=== PATIENT | male | born 1970 | race Caucasian/White ===

== ENCOUNTER 2017-01-04 07:39 | Emergency (ER) | payer OTHER ==
[~2017-01-04] VITALS: Ht 182.9 cm; Wt 83.9 kg
--- NOTE | 2017-01-04 08:00 | PHYS DOC ---
General Chief Complaint: FATIGUE Time Seen by MD: 07:43 Source: patient Exam Limitations: no limitations Problems: History of Present Illness Initial Comments Patient is 46-year-old male who comes to the ED complaining of fatigue. 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 States he had a negative heart catheterization within the past year he takes xarelto carvedilol lisinopril and Protonix regularly. Symptoms have been consistent the past 3 days, generalized fatigue and intermittent body aches no actual chest pain trouble breathing palpitations lightheadedness or dizziness. Patient is somewhat anxious and concerned he may have gone back into irregular rhythm. Timing/Duration: 24 hours Severity: mild Modifying Factors: worse with movement, improves with rest Associated Symptoms: loss of appetite, malaise, weakness Allergies: Coded Allergies: No Known Drug Allergies (Unverified , 01/04/17) Past Medical History Medical History: GERD, hypertension, other (atrial fibrillation, chronic Xarelto anticoagulation) Surgical History: other (negative heart catheterization this past year) Family History Significant Family History: heart disease (father at 67 years of age CHF) Social History Smoker: non-smoker Alcohol: heavy (6-8 beers most days) Drugs: none Review of Systems Constitutional: denies chills, denies diaphoresis, denies fever, malaise, weakness Respiratory: denies cough, denies orthopnea, denies shortness of breath, denies wheezing Cardiovascular: denies chest pain, denies palpitations, denies syncope Gastrointestinal: denies abdominal pain, denies diarrhea, denies nausea, denies vomiting Genitourinary: denies dysuria, denies frequency, denies hematuria Musculoskeletal: denies back pain, denies joint swelling, muscle pain, denies neck pain Psychiatric/Neurological: denies headache, denies numbness, denies paresthesia , denies weakness Hematologic/Lymphatic: denies blood clots, easy bleeding, denies easy bruising Physical Exam General Appearance: WD/WN, no apparent distress Eyes: bilateral eye normal inspection, bilateral eye PERRL, bilateral eye EOMI Ear, Nose, Throat: hearing grossly normal, normal ENT inspection, normal pharynx (dry membranes) Neck: non-tender, supple Respiratory: normal breath sounds, no respiratory distress Cardiovascular: normal peripheral pulses, regular rate, rhythm Gastrointestinal: non tender, soft, no organomegaly Extremities: non-tender, normal inspection 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 Interpreted by Dr Bernard Labs reassuring, etoh 12, UDS + cannabinoids PATIENT: ALICIA AYALA ACCOUNT: [id number] : 1970 LOCATION: ER AGE: 46 SEX: M EXAM STATUS: REG ER ORD. PHYSICIAN: SHAVONNE BERNARD DO REASON: afib PROCEDURE: PORTABLE CHEST 1V EXAM: Chest one view. HISTORY: Atrial fibrillation. COMPARISON: None. FINDINGS: A frontal view of the chest is obtained. There are no confluent infiltrates. There is no pneumothorax or pleural effusion. The heart is not enlarged. IMPRESSION: 1. No confluent infiltrates. DICTATED AND SIGNED BY: CHARITY PRASAD MD DATE: 01/04/17916 CC: PCP,NO; SHAVONNE BERNARD DO ~ I discussed reassuring workup with the patient. He's had about 250 mL of fluid per IV so far his color has improved and he says he is feeling somewhat better. I discussed substance abuse, time off work, oral hydration and signs and symptoms to monitor as well as indications for urgent return to the department. Patient's questions were answered to her satisfaction and he expressed agreement and understanding with treatment plan. Departure Time of Disposition: 09:26 Disposition: 01 HOME, SELF-CARE Diagnosis: screening exam, marijuana abuse Patient Instructions: Fatigue, Marijuana Abuse-Brief Additional Instructions: You've expressed your intention to go back to work today, work note for today offered and refused. Aggressive hydration with Gatorade or water. Drink alcohol in moderation. Discontinue marijuana abuse, seeking medical assistance if necessary. Continue current medications. Follow-up with your doctor Tuesday call today to schedule appointment. Return to ED with new or changing symptoms. SHAVONNE BERNARD DO Jan 04, 2017 08:00
[2017-01-04] MEDS ORDERED: IV NORMAL SALINE 1,000ML 500 ML IV SCH (08:10)
--- NOTE | 2017-01-04 08:19 | EKG ---
[address] [address] Test Date: 2017-01-04 Test Time: 07:47:43 Pat Name: ALICIA AYALA Department: Room: Gender: M Director Of Event Marketing: AMANDA : 1970 Requested By: SHAVONNE BERNARD Order Number: [id number] Reading MD: Measurements Intervals [place] Rate: 64 P: 61 VA: 176 QRS: 30 QRSD: 86 T: 43 QT: 392 QTc: 408 Interpretive Statements SINUS RHYTHM QRS(T) CONTOUR ABNORMALITY CONSIDER ANTEROSEPTAL MYOCARDIAL DAMAGE POSSIBLY ABNORMAL ECG RI6.01 Unconfirmed report No previous ECG available for comparison
[2017-01-04 08:20] LABS: BASO % 1 % (0-3); EOS # 0.3 x10^3/uL (0.0-0.7); EOS % 6 % (0-3); HEMATOCRIT 43.8 % (39.0-53.0); HEMOGLOBIN 15.3 g/dL (13.0-17.5); LYMPH # 1.1 x10^3/uL (1.0-4.8); LYMPH % 25 % (24-48); MEAN CORPUSCULAR HEMOGLOBIN 34 pg (25-35); MEAN CORPUSCULAR HGB CONC 35 g/dL (31-37); MEAN CORPUSCULAR VOLUME 98 fL (79-100); MONO # 0.4 x10^3/uL (0.0-1.1); MONO % 9 % (0-9); NEUT # 2.5 x10^3uL (1.8-7.7); NEUT % 59 % (31-73); PLATELET COUNT 279 x10^3/uL (140-400); RED BLOOD COUNT 4.49 x10^6/uL (4.30-5.70); RED CELL DISTRIBUTION WIDTH 12.5 % (11.5-14.5); WHITE BLOOD COUNT 4.3 x10^3/uL (4.0-11.0)
[2017-01-04 08:41] LABS: ALBUMIN 4.2 g/dL (3.4-5.0); ALBUMIN/GLOBULIN RATIO 1.1 (1.0-1.7); CALCIUM 8.9 mg/dL (8.5-10.1); CREATININE 0.8 mg/dL (0.7-1.3); POTASSIUM 4.3 mmol/L (3.5-5.1); TOTAL BILIRUBIN 0.3 mg/dL (0.2-1.0); TOTAL PROTEIN 7.9 g/dL (6.4-8.2)
[2017-01-04 09:04] LABS: AMPHETAMINE/METHAMPHETAMINE NEG (NEG); BARBITURATES NEG (NEG); BENZODIAZEPINES NEG (NEG); CANNABINOIDS POS (NEG); COCAINE NEG (NEG); METHADONE NEG (NEG); OPIATES NEG (NEG); PHENCYCLIDINE NEG (NEG)
--- NOTE | 2017-01-04 09:19 | RAD ---
EXAM: Chest one view. HISTORY: Atrial fibrillation. COMPARISON: None. FINDINGS: A frontal view of the chest is obtained. There are no confluent infiltrates. There is no pneumothorax or pleural effusion. The heart is not enlarged. IMPRESSION: 1. No confluent infiltrates.
[2017-01-04 09:45] VITALS: BP 127/94
== END 2017-01-04 09:45 | disposition home or self-care (01) ==
LOC: ER 07:39
DX: Z00.00 Encounter for general adult medical examination without abnormal findings (principal); R53.83 Other fatigue; K21.9 Gastro-esophageal reflux disease without esophagitis; I10 Essential (primary) hypertension; I48.2 Chronic atrial fibrillation; F12.10 Cannabis abuse, uncomplicated; F10.20 Alcohol dependence, uncomplicated
CPT/HCPCS: 36415; 71010; 80053; 80307; 82550; 83735; 83880; 84484; 85025; 93005; 96360; 96361; 99285; G0480; G0479; J7030

== ENCOUNTER → 2018-03-02 | Outpatient (CLI) | payer OTHER ==
[2018-03-02 10:01] LABS: BASO # 0.1 x10^3/uL (0.0-0.2); BASO % 1 % (0-3); EOS # 0.1 x10^3/uL (0.0-0.7); EOS % 2 % (0-3); HEMATOCRIT 47.2 % (39.0-53.0); LYMPH # 0.9 x10^3/uL (1.0-4.8); LYMPH % 12 % (24-48); MEAN CORPUSCULAR HEMOGLOBIN 33 pg (25-35); MEAN CORPUSCULAR HGB CONC 34 g/dL (31-37); MEAN CORPUSCULAR VOLUME 97 fL (79-100); MONO # 0.8 x10^3/uL (0.0-1.1); MONO % 10 % (0-9); NEUT # 5.7 x10^3uL (1.8-7.7); NEUT % 75 % (31-73); PLATELET COUNT 319 x10^3/uL (140-400); RED BLOOD COUNT 4.85 x10^6/uL (4.30-5.70); RED CELL DISTRIBUTION WIDTH 12.6 % (11.5-14.5); WHITE BLOOD COUNT 7.6 x10^3/uL (4.0-11.0)
[2018-03-02 10:15] LABS: ALBUMIN 4.3 g/dL (3.4-5.0); ALBUMIN/GLOBULIN RATIO 1.2 (1.0-1.7); CALCIUM 9.1 mg/dL (8.5-10.1); CREATININE 0.8 mg/dL (0.7-1.3); GFR 104.5; POTASSIUM 4.4 mmol/L (3.5-5.1); TOTAL BILIRUBIN 0.7 mg/dL (0.2-1.0)
== END | disposition home or self-care (01) ==
LOC: LAB 09:37
PROVIDERS: ATTEND Nurse Practitioner Family
DX: R07.89 Other chest pain (principal)
CPT/HCPCS: 36415; 80053; 82550; 84484; 85025